=== PATIENT | male | born 1980 | race Caucasian/White ===

== ENCOUNTER 2020-01-29 07:02 | Outpatient (CLI) | payer OTHER ==
--- NOTE | 2020-01-29 08:02 | ULT ---
Hepatic sonogram with duplex evaluation HISTORY: Abnormal liver function tests. FINDINGS: Echogenic stones and sludge are present within the gallbladder lumen. There is no gallbladd er wall thickening or para cholecystic fluid. Common duct is 0.4 cm. Liver has normal appearance without focal mass or intrahepatic biliary dilatation. No free fluid. Spleen measures up to 11.1 cm. Good color and spectral Doppler flow within the hepatic and splenic arteries. Portal venous flow is t owards the liver. Hepatic venous flow is towards the IVC. IMPRESSION : Cholelithiasis. No evidence of biliary obstruction. No sonographic findings of portal venous hypertension.
== END 2020-01-29 07:03 | disposition home or self-care (01) ==
LOC: BICULT 07:02
PROVIDERS: ATTEND Internal Medicine Gastroenterology
DX: R94.5 Abnormal results of liver function studies (principal); R19.7 Diarrhea, unspecified; K80.20 Calculus of gallbladder without cholecystitis without obstruction
CPT/HCPCS: 76705